=== PATIENT | female | born 1960 | race Caucasian/White ===

== ENCOUNTER 2022-01-23 11:56 | Emergency (ER) | payer OTHER, SELFPAY ==
[2022-01-23] VITALS (15 sets, daily range): BP systolic 123–185; BP diastolic 58–96; PULSE 63–101; RESP 13–24; TEMP 36.5; O2SAT 95–99
--- NOTE | ~2022-01-23 | XR_ITS ---
EXAMINATION: XR chest 2V DATE: 01/23/2022 12:36 INDICATION: Chest pain TECHNIQUE: Frontal and lateral views of the chest are obtained COMPARISON: None available FINDINGS: There is a mild diffuse interstitial pattern. No pleural effusion or pneumothorax. Cardiome champ is noted. There are bridging osteophytes at multiple levels in the spine, consistent with diffus e idiopathic skeletal hyperostosis (DISH). IMPRESSION: 1. Cardiomegaly with mild pulmonary edema. Reviewed, dictated and finalized at location A.
--- NOTE | 2022-01-23 12:02 | ECG_ITS ---
Measurements Intervals [place] Rate: 78 P: 41 CA: 189 QRS: -35 QRSD: 96 T: 24 QT: 366 QTc: 417 Interpretive Statements SINUS RHYTHM WITH FREQUENT SUPRAVENTRICULAR PREMATURE COMPLEXES MARKED LEFT AXIS DEVIATION [QRS AXIS < -30] MINIMAL VOLTAGE CRITERIA FOR LVH, CONSIDER NORMAL VARIANT [MEETS CRITERIA IN ONE OF: R(aVL), S(V1), R(V5), R(V5/V6)+S(V1)] POSSIBLE ANTERIOR MYOCARDIAL INFARCTION , PROBABLY OLD [30 ms Q WAVE IN V3/V4, OR R < 0.2 mV IN V4] INFERIOR MYOCARDIAL INFARCTION , PROBABLY OLD [40+ ms Q WAVE AND/OR ST/T ABNORMALITY IN II/aVF] ABNORMAL ECG NO PREVIOUS ECG AVAILABLE FOR COMPARISON Electronically Signed On 01-23-2022 12:38:22 CDT by Tee Cam M.D.
[2022-01-23 12:17] LABS: Basophils Percent Auto 0.4 % (0.2-1.2); Hematocrit 41.6 % (37.0-47.0); Hemoglobin 13.9 g/dL (12.0-15.0); Immature Granulocyte Absolute 0.02 K/mm3 (0.00-0.031); Immature Granulocyte Percent A 0.3 % (0-0.5); Lymphocytes Absolute Auto 2.16 K/mm3 (0.9-3.2); Mean Corpuscular HGB Conc 33.4 g/dl (32-36); Mean Corpuscular Hemoglobin 28.8 pg (26-34); Mean Corpuscular Volume 86.1 fl (80-100); Mean Platelet Volume 9.5 fl (7.4-10.4); Monocytes Absolute Auto 0.4 K/mm3 (0.1-0.6); Monocytes Percent Auto 6.2 % (2.6-8.5); Neutrophils Absolute Auto 4.1 K/mm3 (1.3-6.7); Neutrophils Percent Auto 61.1 % (45.5-73.1); Platelet Count Result 189 k/mm3 (150-375); Red Blood Count 4.83 M/mm3 (4.2-5.4); Red Cell Distribution Width 13.3 % (11.5-14.5); White Blood Count 6.7 K/mm3 (4.5-10.0)
[2022-01-23 12:31] LABS: INR 1.2; Prothrombin Time 14.7 Seconds (11.1-14.7)
[2022-01-23 12:32] LABS: Partial Thromboplastin Time 36.2 SECONDS (22.3-36.8)
[2022-01-23 12:37] LABS: Alanine Aminotransferase 20 U/L (6-35); Albumin Level 4.3 g/dL (3.5-5.1); Alkaline Phosphatase 82 U/L (38-126); Anion Gap 12 mmol/L (8-16); Aspartate Amino Transferase 22 U/L (14-36); Bilirubin,Total 0.5 mg/dL (0.2-1.3); Blood Urea Nitrogen 13 mg/dL (7-17); Calcium 9.5 mg/dL (8.4-10.2); Carbon Dioxide 25 mmol/L (22-30); Chloride 95 mmol/L (98-107); Estimated CRCL calculation 99 ml/min; Estimated Glomerular Filt Rate > 60; Glucose 119 mg/dL (65-110); Lipase 229 U/L (23-300); Sodium 132 mmol/L (137-145)
[2022-01-23 12:48] LABS: Troponin I < 0.012 ng/mL (0.000-0.034)
[2022-01-23 14:01] LABS: NT Pro B Type Natriuretic Pept 87 pg/mL (5-100)
--- NOTE | 2022-01-23 14:01 | ED.CHESTPAIN ---
HPI - Chest Pain General Chief Complaint: Chest Pain Stated Complaint: chest pain Time Seen by Provider: 01/23/22 13:06 Source: patient, RN notes reviewed and old records reviewed Mode of arrival: ambulatory Limitations: no limitations History of Present Illness HPI narrative: This is a 61 year old female with history of pulmonary emboli, aortic stenosis, hyperlipidemia and hypertension who presents for evaluation of chest pain. Patient states she noticed burning chest pain when she laid back down this morning at 9 am. She states this pain was nonradiating and it lasted for 30 minutes. She denies associated nausea, vomiting, shortness of breath, dizziness, back pain. She denies any pain now. She is concerned because she has similar pain 8 years ago when she was diagnosed with bilateral pulmonary emboli. She takes eliquis twice a day without any missed doses. She denies exacerbating factors. She denies leg swelling or calf pain. She denies recent travel or procedures. She denies heart disease. Related Data Home Medications Medication Instructions Recorded Confirmed apixaban 5 mg tablet (Eliquis) 5 mg PO BID 01/23/22 atorvastatin 40 mg tablet 40 mg PO HS 01/23/22 hydrochlorothiazide 25 mg tablet 25 mg PO DAILY 01/23/22 lisinopril 40 mg tablet 40 mg PO DAILY 01/23/22 Allergies Allergy/AdvReac Type Severity Reaction Status Date / Time No Known Allergies Allergy Verified 01/23/22 13:29 Review of Systems Review of Systems: All systems reviewed & are unremarkable except as noted in HPI and below Constitutional: Constitutional: Denies chills, Denies fatigue and Denies fever(s) Cardiovascular: Cardiovascular: Reports chest pain and Denies radiating jaw, neck or arm pain Respiratory: Respiratory: Denies chest congestion and Denies dyspnea Gastrointestinal: Gastrointestinal: Denies abdominal pain, Denies bloating, Denies nausea and Denies vomiting [facility] Past Medical History Medical History (Updated 01/23/22 @ 15:41 by Kyleigh Villar MD) Aortic stenosis Social History Social History (Updated 01/23/22 @ 14:14 by Kyleigh Villar MD) Smoking status: Never smoker Exam Const: General: no acute distress and alert Nutritional Appearance: obese Orientation/consciousness: patient oriented x3 HENMT: Head: normal to inspection Face and sinus: normal facial exam Throat: posterior oropharynx normal Eyes: Pupils: Equal, round and reactive pupils present EOM: EOMs intact bilaterally Chest: Chest palpation & inspection: normal inspection of the chest Resp: Effort & Inspection: normal respiratory effort Auscultation: clear to auscultation bilaterally Cardio: Rate: regular rate Rhythm: regular rhythm GI: GI Palp: Yes Soft to palpation, No Tenderness to palpation present (GI) and No Guarding due to palpation present (GI) Auscultation: normal bowel sounds Back/Spine/Pelvis: Back: no CVA tenderness Skin: General skin exam: normal color Rashes: no rashes Wounds: no wounds Neuro: General: patient oriented x3, moves all extremities and CN's II-XI intact bilaterally Cranial nerves: Yes Nystagmus not present Speech: normal speech Extrem: General: normal to inspection Psych: Mental Status: mental status grossly normal Affect: normal affect Attitude: cooperative Course Reevaluation(s) Reevaluation #1: Patient was low risk for PE according to Wells score. she had score of 3 so unlikely. D dimer is negative so will not CTA as she is not having any symptoms or signs of DVT. I have discussed this with patient. Her symptoms are unlikely ACS. 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 She is not have shortness of breath or any symptoms to suggest CHF,. Date: 01/23/22 Time: 15:32 Vital Signs Vital signs: Vital Signs Temperature 97.7 F 01/23/22 11:59 Pulse Rate 101 H 01/23/22 11:59 Respiratory Rate 16 01/23/22 11:59 Blood Pressure 185/96 H 01/23/22 11:59 Pulse Oximetry 99
[2022-01-23 14:16] LABS: SARS-CoV-2 RNA PCR Negative
[2022-01-23 15:02] LABS: D Dimer < 0.27 ug/mL (<0.48)
--- NOTE | 2022-01-23 15:04 | PC.NURSE ---
Confirmed with RAMON Sung to cancel protocol aspirin
[2022-01-23 15:20] LABS: Troponin I < 0.012 ng/mL (0.000-0.034)
== END 2022-01-23 15:45 | disposition home or self-care (01) ==
PROVIDERS: Emergency Medicine; Emergency Provider General Practice
DX: R07.89 Other chest pain (principal); Z20.822 Contact with and (suspected) exposure to COVID-19; I35.0 Nonrheumatic aortic (valve) stenosis; I10 Essential (primary) hypertension; E78.5 Hyperlipidemia, unspecified; Z86.711 Personal history of pulmonary embolism; Z79.01 Long term (current) use of anticoagulants; I51.7 Cardiomegaly; I49.1 Atrial premature depolarization; R94.31 Abnormal electrocardiogram [ECG] [EKG]
CPT/HCPCS: 36415; 71046; 80053; 83690; 83880; 84484; 85025; 85380; 85610; 85730; 93005; 99284; C9803; U0003; U0005